=== PATIENT | male | born 1960 | race Caucasian/White ===

== ENCOUNTER 2018-01-03 15:59 | Emergency (ER) | payer MEDICAID ==
[~2018-01-03] VITALS: Ht 175.3 cm; Wt 85.0 kg
[2018-01-03 16:54] LABS: BASOPHILS # (AUTO) 0.03 x10^3/uL (0-0.1); BASOPHILS % (AUTO) 1 % (0-1); EOSINOPHILS # (AUTO) 0.05 x10^3/uL (0-0.4); EOSINOPHILS % (AUTO) 1 % (1-7); LYMPHOCYTES # (AUTO) 1.68 x10^3/uL (1-3.4); LYMPHOCYTES % (AUTO) 36 % (22-44); MD NO; MEAN CORPUSCULAR HEMOGLOBIN 34.2 pg (27.5-34.5); MEAN CORPUSCULAR HGB CONC 34.9 g/dL (33.2-36.2); MEAN CORPUSCULAR VOLUME 97.9 fL (81-97); MEAN PLATELET VOLUME 6.9 fL (7.4-10.4); MONOCYTES # (AUTO) 0.53 x10^3/uL (0.2-0.8); MONOCYTES % (AUTO) 11 % (2-9); NEUTROPHILS # (AUTO) 2.44 x10^3/uL (1.8-6.8); NEUTROPHILS % (AUTO) 52 % (42-75); PLATELET COUNT 195 x10^3/uL (130-400); RED BLOOD COUNT 5.19 x10^6/uL (4.38-5.82); RED CELL DISTRIBUTION WIDTH 12.5 % (9.4-14.8)
[2018-01-03 16:59] LABS: ALBUMIN 3.5 g/dL (3.4-5.0); ANION GAP 11 mmol/L (5-15); CALCIUM 8.2 mg/dL (8.5-10.1); CHLORIDE 105 mmol/L (98-107); CREATININE 0.87 mg/dL (0.7-1.3)
[2018-01-03] MEDS ORDERED: LEVE750T37 PO (17:00)
[2018-01-03] MEDS ORDERED: ALBUTEROL/IPRATROPIUM 2.5MG/0.5MG, 3 ML ONE (17:27)
[2018-01-03] MEDS ORDERED: ALBUTEROL/IPRATROPIUM 2.5MG/0.5MG, 3 ML NPPB SCH (17:30)
[2018-01-03 18:45] VITALS: BP 130/72
== END 2018-01-03 19:25 | disposition home or self-care (01) ==
LOC: ED 19:15
DX: J44.1 Chronic obstructive pulmonary disease with (acute) exacerbation (principal); F11.10 Opioid abuse, uncomplicated; G40.919 Epilepsy, unspecified, intractable, without status epilepticus
CPT/HCPCS: 36415; 71046; 80048; 82040; 85025; 94640; 99285; J7512; J7620

== ENCOUNTER 2018-04-06 22:23 | Emergency (ER) | payer MEDICAID ==
[~2018-04-06] VITALS: Ht 182.9 cm; Wt 78.0 kg
[~2018-04-06 22:23] MED LIST: LEVE750T37 PO
--- NOTE | 2018-04-06 22:29 | NUR ---
PATIENT ARRIVES WITH WHEELCHAIR TO ER FROM [facility] AND GO WHEN HE FELL AND STATES HAD A SEIZURE. HE REPORTS SOME BEERS TODAY - ABOUT QUANTITY 3 THIRTY TWO OUNCE BEERS. HE IS 90% ON ROOM AIR, PLACED ON OXYGEN. STATES HE IS ALWAYS ON OXYGEN. HE STATES HE ALSO HAS EPILEPSY AND IS TAKING KEPRA. HE IS IMPULSIVE AND SOMEWHAT DIFFICULT TO GET HIS CLOTHES OFF FOR A GOWN AND TO GET VITALS BUT WITH HELP GOT HIM IN BED, RAILS UP, AND ON MONITOR. SEIZURE PRECAUTIONS
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
[2018-04-06 23:22] LABS: BASOPHILS # (AUTO) 0.02 x10^3/uL (0-0.1); BASOPHILS % (AUTO) 1 % (0-1); EOSINOPHILS % (AUTO) 2 % (1-7); LYMPHOCYTES # (AUTO) 2.32 x10^3/uL (1-3.4); LYMPHOCYTES % (AUTO) 52 % (22-44); MD NO; MEAN CORPUSCULAR HEMOGLOBIN 34.4 pg (27.5-34.5); MEAN CORPUSCULAR HGB CONC 34.5 g/dL (33.2-36.2); MEAN CORPUSCULAR VOLUME 99.7 fL (81-97); MEAN PLATELET VOLUME 6.9 fL (7.4-10.4); MONOCYTES # (AUTO) 0.45 x10^3/uL (0.2-0.8); MONOCYTES % (AUTO) 10 % (2-9); NEUTROPHILS # (AUTO) 1.53 x10^3/uL (1.8-6.8); NEUTROPHILS % (AUTO) 35 % (42-75); PLATELET COUNT 224 x10^3/uL (130-400); RED BLOOD COUNT 4.78 x10^6/uL (4.38-5.82); RED CELL DISTRIBUTION WIDTH 13.2 % (9.4-14.8)
[2018-04-06 23:33] LABS: ALBUMIN 3.5 g/dL (3.4-5.0); ANION GAP 7 mmol/L (5-15); CHLORIDE 109 mmol/L (98-107)
--- NOTE | 2018-04-06 23:59 | NUR ---
patient in bed. coughing. sleeping mostly.
--- NOTE | 2018-04-07 00:44 | NUR ---
patient sleeping soundly awaiting ed outcome. seizure precautions
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
[2018-04-07 01:23] VITALS: BP 107/78
== END 2018-04-07 01:31 | disposition home or self-care (01) ==
LOC: ED 04-07 01:25
DX: R56.9 Unspecified convulsions (principal); F10.220 Alcohol dependence with intoxication, uncomplicated; J44.9 Chronic obstructive pulmonary disease, unspecified
CPT/HCPCS: 36415; 71045; 80048; 80307; 82040; 85025; 99284